=== PATIENT | male | born 1995 | race Caucasian/White ===

== ENCOUNTER 2020-09-17 19:40 | Emergency (ER) | payer OTHER, SELFPAY ==
--- NOTE | ~2020-09-17 | XR_ITS ---
[[id number] ] INDICATION: Right rib pain TECHNIQUE: Frontal projection of the upper right ribs, frontal projection of the lower right ribs, ob lique projection of all the right ribs, frontal inspiratory chest x-ray for interpretation. FINDINGS: There are no displaced rib fractures identified. There are no soft tissue abnormality see n. The lungs are clear. IMPRESSION: 1:No displaced rib fractures. Reviewed, dictated and finalized at location A.
[2020-09-17 19:57] VITALS: BP 141/81; PULSE 80; RESP 18; TEMP 37; O2SAT 100
--- NOTE | 2020-09-17 20:12 | ED.GENADULT ---
HPI - General Adult General Chief complaint: Trauma Stated complaint: Rib Pain Time Seen by Provider: 09/17/20 20:12 Source: patient Mode of arrival: ambulatory Limitations: no limitations History of Present Illness HPI narrative: 25-year-old male patient presents to the [facility] with complaints of rib pain for the past 3 weeks. Patient states he was having some rib pain about 3 weeks ago went to his chiropractor and was told he had [address] and states something popped very loudly. Patient states he went back a week later to his chiropractor again with pain and at that time they did do an x-ray which did not show any fractures at the time. Patient states they readjusted him again and encouraged him to take ibuprofen. Patient states has been taking ibuprofen for about a week and did try going back to work for about 3 days. 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 Patient continues to complain of right rib pain. Patient was then advised to come and seek further medical care. Related Data Home Medications Medication Instructions Recorded Confirmed Klonopin 09/17/20 Seroquel 09/17/20 lisinopril 09/17/20 venlafaxine mg 09/17/20 Allergies Allergy/AdvReac Type Severity Reaction Status Date / Time No Known Allergies Allergy Verified 09/17/20 19:44 Review of Systems Review of Systems: Narrative: CONSTITUTIONAL: Denies fever, chills, or sweats. EYES: Denies visual changes, redness, or discharge. ENT: Denies rhinorrhea, congestion, sore throat, or otalgia. CARDIOVASCULAR: Denies chest pain, palpitations, or edema. RESPIRATORY: Denies cough or dyspnea. GASTROINTESTINAL: Denies abdominal pain, nausea, vomiting, or diarrhea. GENITOURINARY: Denies dysuria or hematuria. SKIN: Denies rash or itching. MUSCULOSKELETAL: Denies back pain, joint pain, or myalgia. Positive right-sided rib pain x3 weeks NEUROLOGIC: Denies headache, numbness, or weakness. PSYCHIATRIC: Denies anxiety or depression. PMFSH Comments At the time of my signature I agree with nursing past medical history, surgical, social, and family history. There is no relevant family history pertinent to the presenting complaint. Exam Narrative: Exam Narrative: GENERAL: Well-appearing, well-nourished, and in no acute distress. HEAD: Normocephalic, atraumatic. EYES: PERRLA and EOMI. ENT: Nares clear, no rhinorrhea or epistaxis. Mucous membranes moist. NECK: Supple. No lymphadenopathy CHEST: Clear to auscultation. No respiratory distress. Patient has 4/anterior point tenderness noted more towards the sternum area. No obvious trauma or bruising noted. HEART: Regular rate and rhythm. No murmur heard. Normal peripheral pulses. ABDOMEN: Soft, nontender, nondistended, normal active bowel sounds. EXTREMITIES: Normal range of motion. No edema. SKIN: Warm, dry, no rash. NEURO: No focal deficits. Alert and oriented x3. Course Vital Signs Vital signs: Vital Signs Temperature 37.0 C 09/17/20 19:57 Pulse Rate 80 09/17/20 19:57 Respiratory Rate 18 09/17/20 19:57 Blood Pressure 141/81 H 09/17/20 19:57 Pulse Oximetry 100 09/17/20 19:57 Temperature 37.0 C 09/17/20 19:57 Pulse Rate 80 09/17/20 19:57 Respiratory Rate 18 09/17/20 19:57 Blood Pressure 141/81 H 09/17/20 19:57 Pulse Oximetry 100 09/17/20 19:57 Vital signs reviewed The patient has been informed that they may have pre-hypertension or Hypertension based on a BP reading in the department. I recommend that the patient call the primary care provider listed on their discharge instructions or a physician of their choice this week to arrange follow up for further evaluation of possible pre-hypertension or Hypertension Medical Decision Making Differential Diagnosis Differential Diagnosis: Differential diagnosis: STEMI/ACS, AAA, PE, spontaneous pneumothorax, cardiac tamponade, esophageal rupture, pneumonia, GERD, musc
== END 2020-09-17 20:28 | disposition home or self-care (01) ==
PROVIDERS: Emergency Provider Nurse Practitioner Family
DX: M94.0 Chondrocostal junction syndrome [Tietze] (principal)
CPT/HCPCS: 71101; 99203; G0463

== ENCOUNTER 2021-03-01 16:36 | Emergency (ER) | payer OTHER, SELFPAY ==
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
[2021-03-01 16:43] VITALS: BP 131/72; PULSE 89; RESP 14; TEMP 36.8; O2SAT 100
[2021-03-01 18:00] VITALS: BP 116/60; PULSE 64; RESP 18; O2SAT 98
[2021-03-01] MEDS: SODIUM CHLORIDE 0.9% IV 1,000 ML 999 ML IV CONT (18:08)
[2021-03-01 18:23] LABS: Anion Gap 8 mmol/L (8-16); Blood Urea Nitrogen 20 mg/dL (9-20); Calcium 9.5 mg/dL (8.4-10.2); Carbon Dioxide 29 mmol/L (22-30); Chloride 101 mmol/L (98-107); Estimated CRCL calculation 129 ml/min; Estimated Glomerular Filt Rate > 60; Glucose 90 mg/dL (65-110); Potassium 4.2 mmol/L (3.4-5.0); Sodium 138 mmol/L (137-145)
[2021-03-01] MEDS: IBUPROFEN 600 MG TABLET PO (18:23)
[2021-03-01 19:00] VITALS: BP 139/76; PULSE 65; RESP 18; O2SAT 97
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
[2021-03-01 20:00] VITALS: BP 141/73; PULSE 65; RESP 18; TEMP 36.8; O2SAT 99
== END 2021-03-01 20:00 | disposition home or self-care (01) ==
PROVIDERS: Emergency Provider Emergency Medicine
DX: S22.32XA Fracture of one rib, left side, initial encounter for closed fracture (principal); V49.50XA Passenger injured in collision with unspecified motor vehicles in traffic accident, initial encounter
CPT/HCPCS: 36415; 71046; 71260; 80048; 96360; 96361; 99284; A9270; J7030; Q9967